=== PATIENT | female | born 1955 | race Caucasian/White ===

== ENCOUNTER 2017-06-02 12:40 | Observation (INO) | payer BC ==
[2017-06-02] MEDS ORDERED: Lactated Ringers 1,000 ML IV SCH ×2 (13:15→15:30)
[2017-06-02] MEDS ORDERED: Sodium Chloride 0.9% 10 ML Syringe FLUSH PRN (13:17)
[2017-06-02] MEDS ORDERED: cefOXitin 2 GM Vial IVPUSH ONE (14:00)
[2017-06-02] MEDS ORDERED: cefOXitin 2 GM in Sodium Chloride 0.9% 100 ML IV SCH (14:00)
[2017-06-02] MEDS ORDERED: Propofol 200 MG/20 ML SDV IV ONE (14:15)
[2017-06-02] MEDS ORDERED: Dexamethasone 4 MG/ML 5 ML MDV IVPUSH ONE (14:15)
[2017-06-02] MEDS ORDERED: fentaNYL 100 MCG/2 ML SDV IV ONE (14:15)
[2017-06-02] MEDS ORDERED: Rocuronium 100 MG/10 ML MDV IV ONE (14:15)
[2017-06-02] MEDS ORDERED: Lactated Ringers 1,000 ML IV ONE (14:15)
[2017-06-02] MEDS ORDERED: FLU Vacc QS 2017-18 (36mos UP)/PF 60 MCG/0.5 ML Syringe IM ONE (14:15)
[2017-06-02] MEDS ORDERED: Ondansetron 4 MG/2 ML SDV IVPUSH ONE (14:15)
[2017-06-02] MEDS ORDERED: HYDROmorphone 2 MG/ML SDV IV ONE (14:15)
[2017-06-02] MEDS ORDERED: ePHEDrine 50 MG/ML SDV IV ONE (14:15)
[2017-06-02] MEDS ORDERED: Ketorolac 30 MG/ML SDV IVPUSH ONE (14:15)
[2017-06-02] MEDS ORDERED: Succinylcholine 200 MG/10 ML MDV IV ONE (14:15)
[2017-06-02] MEDS ORDERED: Neostigmine Methylsulfate 10 MG/10 ML MDV IVPUSH ONE (14:15)
[2017-06-02] MEDS ORDERED: Midazolam 1 MG/ML 2 ML SDV IV ONE (14:15)
--- NOTE | 2017-06-02 14:24 | PCM.HP ---
H&P History of Present Illness - General Date of Service: 06/02/17 Admit Problem/Dx: Admission Diagnosis/Problem Admission Diagnosis/Problem Incarcerated hernia Source of Information: Patient, Old Records History Limitations: Reports: No Limitations - History of Present Illness Onset of Symptoms: Reports: Sudden (mid abdominal pain yesterday afternoon with hard mass above umbilicus. associated with nausea and vomitting) Severity: Moderate Improves with: Reports: None Worsens with: Reports: Eating, Movement Associated Symptoms: Reports: No Other Symptoms Anterior Abdomen Pain Score (Numeric/FACES): 4 - Related Data Allergies/Adverse Reactions: Allergies Allergy/AdvReac Type Severity Reaction Status Date / Time No Known Allergies Allergy Verified 06/02/17 13:13 Past Medical History [employer] History: Reports: Endocrine/Metabolic History: Reports: Obesity/BMI 30+ - Past Surgical History HEENT Surgical History: Reports: Cataract Surgery GI Surgical History: Reports: Cholecystectomy Female Surgical History: Reports: Section Social & Family History - Family History Family Medical History: Noncontributory - Tobacco Use Smoking Status *Q: Never Smoker Second Hand Smoke Exposure: Yes - Caffeine Use Caffeine Use: Reports: Coffee - Recreational Drug Use Recreational Drug Use: No H&P Review of Systems - Review of Systems: Review Of Systems: See Below General: Reports: No Symptoms HEENT: Reports: No Symptoms Pulmonary: Reports: No Symptoms Cardiovascular: Reports: No Symptoms Gastrointestinal: Reports: Abdominal Pain, Nausea, Vomiting Genitourinary: Reports: No Symptoms Exam - Exam Exam: See Below - Vital Signs Vital Signs: Last Vital Signs Temp 98.5 F 06/02/17 14:05 Pulse 92 06/02/17 14:05 Resp 14 06/02/17 14:05 BP 130/75 06/02/17 14:05 Pulse Ox 98 06/02/17 14:05 Weight: 83.461 kg - Exam General: Alert, Oriented Lungs: Clear to Auscultation, Normal Respiratory Effort Cardiovascular: Regular Rate, Regular Rhythm GI/Abdominal Exam: Soft, Tender, Mass (above umbilicus) - Patient Data Imaging Impressions Last 24 hrs: CT scan in [place] showed incarcerated Ventral Hernia with small bowel obstruction *Q Meaningful Use (ADM) - VTE *Q VTE Criteria *Q: - Stroke *Q Stroke Criteria *Q: - AMI *Q AMI Criteria *Q: Problem List Initiated/Reviewed/Updated: Yes Orders Last 24hrs: Active Orders 24 hr Category Date Time Status Patient Status [ADT] Routine ADT 06/02/17 13:14 Active Patient to Empty Bladder [RC] ASDIRECTED Care 06/02/17 13:14 Active RT Incentive Spirometry [RC] ASDIRECTED Care 06/02/17 13:14 Active Verify Patient Consent Obtain [RC] ASDIRECTED Care 06/02/17 13:14 Active Lactated Ringers [Ringers, Lactated] 1,000 ml Med 06/02/17 13:15 Active IV ASDIRECTED Sodium Chloride 0.9% [Saline Flush] Med 06/02/17 13:17 Active 10 ml FLUSH ASDIRECTED PRN Peripheral IV Insertion Adult [OM.PC] Routine Oth 06/02/17 13:14 Ordered Sequential Compression Device [OM.PC] Routine Oth 06/02/17 13:14 Ordered Resuscitation Status Routine Resus Stat 06/02/17 13:14 Ordered Medication Orders Lactated Ringer's (Ringers, Lactated) 1,000 mls @ 125 mls/hr IV ASDIRECTED PAKO Last Admin: 06/02/17 14:15 Dose: 125 mls/hr Sodium Chloride (Saline Flush) 10 ml FLUSH ASDIRECTED PRN PRN Reason: Keep Vein Open Assessment/Plan Comment:: Small Bowel Obstruction secondary to incarcerated Ventral Hernia Will go to OR for repair, possible mesh, possible bowel resection Risks and complications reviewed, consent obtained
[2017-06-02] MEDS ORDERED: Acetaminophen/HYDROcodone 325-5 MG Tab PO PRN (15:12)
[2017-06-02] MEDS ORDERED: Morphine 2 MG/ML Syringe IVPUSH PRN (15:12)
--- NOTE | 2017-06-02 15:12 | PCM.OPNOTE ---
- General Post-Op/Procedure Note Date of Surgery/Procedure: 06/02/17 Operative Procedure(s): Ventral Hernia Repair Findings: 2 cm Ventral hernia with loop of small bowel present Pre Op Diagnosis: SBO secondary to incarcerated Ventral Hernia Post-Op Diagnosis: Same Anesthesia Technique: General ET Tube Primary Surgeon: Jacobo Singh Anesthesia Provider: Sandeep Townsend EBL in mLs: 5 Complications: None Condition: Good
[2017-06-02] MEDS ORDERED: Promethazine 25 MG/ML SDV IM PRN (15:29)
[2017-06-02] MEDS ORDERED: Albuterol 0.083% 2.5 MG/3 ML Neb Soln NEB PRN (15:29)
[2017-06-02] MEDS ORDERED: fentaNYL 100 MCG/2 ML SDV IVPUSH PRN (15:29)
[2017-06-02] MEDS ORDERED: Ondansetron 4 MG/2 ML SDV IVPUSH PRN (15:29)
[2017-06-02] MEDS ORDERED: Naloxone 0.4 MG/ML SDV IVPUSH PRN (15:29)
[2017-06-02] MEDS: Lactated Ringers 1,000 ML IV SCH (16:25)
--- NOTE | 2017-06-02 17:56 | OR ---
DATE OF OPERATION: 06/02/2017 SURGEON: Jacobo Singh MD PREOPERATIVE DIAGNOSIS: Small-bowel obstruction secondary to incarcerated ventral hernia. POSTOPERATIVE DIAGNOSIS: Small-bowel obstruction secondary to incarcerated ventral hernia. PROCEDURE: Ventral hernia repair. ANESTHESIA: General. DESCRIPTION OF PROCEDURE: The patient was brought to the operating room, where general endotracheal anesthesia was administered. Her abdomen was prepped with ChloraPrep and draped sterilely. A midline incision was made above the umbilicus and extended through the subcutaneous tissue at which time, a hard hernia sac was identified. This was cleared circumferentially down to the level of fascia. Hernia sac was opened. This had did have hyperemic loop of small bowel approximately 8 cm in length. This was viable. This required slightly incising the fascia to be able to reduce it back into the peritoneal cavity. The fascial edges were cleared circumferentially and the defect was closed transversely with interrupted far-near, near-far 0 Prolene sutures. The fascial edges were felt to be strong enough that mesh was not required. Hernia defect measured 2 cm in diameter. The subcutaneous tissues were reapproximated with #3- 0 Vicryl and skin closed with hilda. A sterile dressing was applied. The patient tolerated the procedure well. Estimated blood loss was less than 5 mL. She returned to postanesthesia in stable condition. /[id number] WATSON/AMOS
[2017-06-03] MEDS: Lactated Ringers 1,000 ML IV SCH (00:37)
--- NOTE | 2017-06-03 11:22 | PCM.SURGPN ---
- General Info Date of Service: 06/03/17 POD#: 1 Functional Status: Reports: Pain Controlled, Tolerating Diet, Ambulating - Review of Systems General: Reports: No Symptoms Pulmonary: Reports: No Symptoms Gastrointestinal: Reports: No Symptoms Genitourinary: Reports: No Symptoms - Patient Data Vitals - Most Recent: Last Vital Signs Temp 98.1 F 06/03/17 07:53 Pulse 70 06/03/17 07:53 Resp 18 06/03/17 07:53 BP 112/72 06/03/17 07:53 Pulse Ox 95 06/03/17 07:53 Weight - Most Recent: 83.461 kg I&O - Last 24 Hours: Intake & Output 06/02/17 06/03/17 06/03/17 22:59 06:59 14:59 Intake Total 1150 2370 Balance 1150 2370 Med Orders - Current: Current Medications Hydrocodone Bitart/Acetaminophen (Glen 325-5 Mg) 1 tab PO Q4H PRN PRN Reason: Pain (mild 1-3) Albuterol (Proventil Neb Soln) 2.5 mg NEB ONETIME PRN PRN Reason: Wheezing Fentanyl (Sublimaze) 50 mcg IVPUSH Q5M PRN PRN Reason: Pain (severe 7-10) Lactated Ringer's (Ringers, Lactated) 1,000 mls @ 125 mls/hr IV ASDIRECTED [facility] Last Admin: 06/03/17 00:37 Dose: 125 mls/hr Lactated Ringer's (Ringers, Lactated) 1,000 mls @ 0 mls/hr IV ASDIRECTED [facility] PRN Reason: KVO Morphine Sulfate (Morphine) 2 mg IVPUSH Q1H PRN PRN Reason: Pain (severe 7-10) Naloxone HCl (Narcan) 0.2 mg IVPUSH Q1M PRN PRN Reason: Respiratory Depression Ondansetron HCl (Zofran) 4 mg IVPUSH ONETIME PRN PRN Reason: Nausea/Vomiting Promethazine HCl (Phenergan) 12.5 mg IM Q4H PRN PRN Reason: Nausea/Vomiting Sodium Chloride (Saline Flush) 10 ml FLUSH ASDIRECTED PRN PRN Reason: Keep Vein Open Discontinued Medications Cefoxitin Sodium (Mefoxin) 2 gm IVPUSH ONETIME ONE Stop: 06/02/17 14:01 Last Admin: 06/02/17 14:12 Dose: 2 gm Lactated Ringer's (Ringers, Lactated) 1,000 mls @ 125 mls/hr IV ASDIRECTED PAKO Last Admin: 06/02/17 14:15 Dose: 125 mls/hr Influenza Virus Vaccine (Fluzone Quad [id number]) 60 mcg IM .ONCE ONE Stop: 06/02/17 14:16 - Exam Wound/Incisions: Healing Well, Dressing Dry and Intact Lungs: Clear to Auscultation GI/Abdominal Exam: Soft, Non-Tender - Problem List Review Problem List Initiated/Reviewed/Updated: Yes - My Orders Last 24 Hours: Active Orders 24 hr Category Date Time Status Patient Status [ADT] Routine ADT 06/02/17 13:14 Active Patient Status [ADT] Routine ADT 06/02/17 15:13 Active Communication Order [RC] ASDIRECTED Care 06/02/17 15:29 Active Notify Provider [RC] PRN Care 06/02/17 15:29 Active Oxygen Therapy [RC] ASDIRECTED Care 06/02/17 15:29 Active Oxygen Therapy [RC] PRN Care 06/02/17 15:13 Active RT Incentive Spirometry [RC] Q2HWA Care 06/02/17 15:12 Active Up With Assistance [RC] ASDIRECTED Care 06/02/17 15:12 Active Vital Signs [RC] PER UNIT ROUTINE Care 06/02/17 15:13 Active Clear Liquid Diet [DIET] Diet 06/02/17 Dinner Active Acetaminophen/HYDROcodone [Glen 325-5 MG] Med 06/02/17 15:12 Active 1 tab PO Q4H PRN Albuterol [Proventil Neb Soln] Med 06/02/17 15:29 Active 2.5 mg NEB ONETIME PRN Lactated Ringers [Ringers, Lactated] 1,000 ml Med 06/02/17 15:15 Active IV ASDIRECTED Lactated Ringers [Ringers, Lactated] 1,000 ml Med 06/02/17 15:30 Active IV ASDIRECTED Morphine Med 06/02/17 15:12 Active 2 mg IVPUSH Q1H PRN Naloxone [Narcan] Med 06/02/17 15:29 Active 0.2 mg IVPUSH Q1M PRN Ondansetron [Zofran] Med 06/02/17 15:29 Active 4 mg IVPUSH ONETIME PRN Promethazine [Phenergan] Med 06/02/17 15:29 Active 12.5 mg IM Q4H PRN Sodium Chloride 0.9% [Saline Flush] Med 06/02/17 13:17 Active 10 ml FLUSH ASDIRECTED PRN fentaNYL [Sublimaze] Med 06/02/17 15:29 Active 50 mcg IVPUSH Q5M PRN Patient May [OM.PC] Click to Edit Oth 06/02/17 15:29 Ordered Peripheral IV Insertion Adult [OM.PC] Routine Oth 06/02/17 13:14 Ordered Sequential Compression Device [OM.PC] Routine Oth 06/02/17 13:14 Ordered Resuscitation Status Routine Resus Stat 06/02/17 13:14 Ordered Medication Orders Hydrocodone Bitart/Acetaminophen (Glen 325-5 Mg) 1 tab PO Q4H PRN PRN Reason: Pain (mild 1-3) Albuterol (Proventil Neb Soln) 2.5 mg NEB ONETIME PRN PRN Reason: Wheezing Fentanyl (Sublimaze) 50 mcg IVPUSH Q5M PRN PRN Reason: Pain (severe 7-10) Lactated Ringer's (Ringers, Lactated) 1,000 mls @ 125 mls/hr IV ASDIRECTED [facility] Last Admin: 06/03/17 00:37 Dose: 125 mls/hr Infusion: 06/03/17 00:25 Dose: 125 mls/hr Admin: 06/02/17 16:25 Dose: 125 mls/hr Lactated Ringer's (Ringers, Lactated) 1,000 mls @ 0 mls/hr IV ASDIRECTED [facility] PRN Reason: KVO Morphine Sulfate (Morphine) 2 mg IVPUSH Q1H PRN PRN Reason: Pain (severe 7-10) Naloxone HCl (Narcan) 0.2 mg IVPUSH Q1M PRN PRN Reason: Respiratory Depression Ondansetron HCl (Zofran) 4 mg IVPUSH ONETIME PRN PRN Reason: Nausea/Vomiting Promethazine HCl (Phenergan) 12.5 mg IM Q4H PRN PRN Reason: Nausea/Vomiting Sodium Chloride (Saline Flush) 10 ml FLUSH ASDIRECTED PRN PRN Reason: Keep Vein Open - Assessment Assessment (Free Text/Narrative):: Doing well;ready for discharge - Plan Plan (Free Text/Narrative):: Discharge
== END 2017-06-03 12:30 | disposition home or self-care (01) ==
LOC: EDSTATUS 13:08 → INTOOBSV 13:27 → FB.MS 13:27
PROVIDERS: ADMIT Surgery; ATTEND Surgery
DX: K43.6 Other and unspecified ventral hernia with obstruction, without gangrene (principal); E66.9 Obesity, unspecified; Z68.30 Body mass index [BMI] 30.0-30.9, adult; Z90.49 Acquired absence of other specified parts of digestive tract
CPT/HCPCS: 49561; J0694; J7120; 90686; 96374; G0008; G0378; J0131; J0330; J1100; J1170; J1885; J2250; J2405; J2704; J2710; J3010

== ENCOUNTER 2018-10-15 06:43 | Day surgery (SDC) | payer BC ==
[2018-10-15] MEDS ORDERED: Propofol 200 MG/20 ML SDV IV ONE (06:44)
[2018-10-15] MEDS ORDERED: Lactated Ringers 1,000 ML IV SCH (06:45)
[2018-10-15] MEDS ORDERED: Simethicone Drops 40 MG/0.6 ML 30 ML Bottle ONE (08:25)
--- NOTE | 2018-10-15 09:20 | PCM.HPR ---
H & P Addendum review - H & P Addendum Review Date of Original H & P: 10/09/18 Date Reviewed: 10/15/18 Time Reviewed: 08:00 Patient was Examined: No Changes
--- NOTE | 2018-10-15 09:23 | PCM.OPNOTE ---
- General Post-Op/Procedure Note Date of Surgery/Procedure: 10/15/18 Operative Procedure(s): EGD with bx. Colopnoscopy with polypectomy Findings: Distal Esophagitis Large HH Colon Polyp Pre Op Diagnosis: Anemia Post-Op Diagnosis: Same Anesthesia Technique: MAC Primary Surgeon: Jacobo Singh Anesthesia Provider: Samm Espinoza Pathology: Dist Esoph Desc Colon Complications: None Condition: Good
--- NOTE | 2018-10-15 12:20 | CR ---
INDICATION: Anemia, large hiatal hernia. UPPER GI: Examination of the distal esophagus, stomach, and duodenum revealed free gastroesophageal reflux with a fixed hiatal hernia, including almost the entire stomach - the only portion of the stomach below the diaphragm is a portion of the gastric antrum. In the area of the distal fundus/body, it is difficult to exclude a submucosal lesion, such as a leiomyoma, measuring perhaps 5 [address] in diameter[address] A [address] examination would be confirmatory with contrast, after the more dense contrast of the upper GI obtained today has passed. No definite ulceration was seen in the stomach. Flow was moderate into the distal gastric antrum and duodenum. The duodenal bulb and sweep filled to normal contour along the caudal aspect. The cranial aspect had some irregularity, which may represent scarring, possibly from previous peptic ulcer disease. This makes it difficult to entirely exclude minimal active ulceration in that area. However, no definite persistent ulcer crater was identified focally in that area. The small bowel loops that filled appeared normal. Evidence of cholecystectomy is noted. Free gastroesophageal reflux was noted during the examination with some minimal tertiary waves in the distal esophagus suggested. IMPRESSION: Massive fixed hiatal hernia. This does not appear to be paraesophageal at this time. No definite obstruction was seen, although free gastroesophageal reflux is noted, and the possibility of a submucosal lesion near the fundus - proximal body of the stomach posteriorly cannot be excluded. CT examination may be helpful in that regard with oral contrast after a satisfactory interval to allow the contrast to pass from the stomach. 3 minutes, 24 seconds fluoroscopy time. Report was called to Dr. Singh at 1150 hours on 10/15/18. Report was faxed to Dr. Singh at 1225 hours on 10/15/18. [facility]
--- NOTE | 2018-10-15 15:42 | OR ---
DATE OF OPERATION: 10/15/2018 SURGEON: Jacobo Singh MD PREOPERATIVE DIAGNOSIS: Anemia. POSTOPERATIVE DIAGNOSES: 1. Distal esophagitis. 2. Large hiatal hernia. 3. Descending colon polyp. PROCEDURES: 1. Esophagogastroscopy with biopsies. 2. Colonoscopy with polypectomy. ANESTHESIA: IV sedation. PROCEDURE IN DETAIL: The patient was brought to the procedure room, where she was placed on her left side and IV sedation administered. Oral bite block was placed and the upper endoscope advanced into the esophagus under direct vision without difficulty. Vocal cords were viewed and were normal. 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 No obvious evidence of malignancy was seen. This extended for approximately 2 cm. Squamocolumnar junction was located at 30 cm from the incisors. Upon entering the stomach, she has a large hiatal hernia. Diaphragmatic opening is at 40 cm. After I get into the distal body of the stomach below the diaphragm, the stomach sharply turns consistent with a paraesophageal hernia where over half the stomach is into the chest. I was unable to find the pylorus and was unable to pass into the duodenum. The visible body and antrum appeared normal. Retroflexion does not reveal any other abnormalities. Multiple biopsies from the distal esophagus were taken as noted above. Air was removed from the stomach and the scope withdrawn. The patient tolerated this portion of the procedure well. Next, colonoscopy was performed after digital rectal exam was done, which was normal. Colonoscope was inserted and advanced to the level of the cecum with some difficulty because of a colon prep that was only fair. There was much thick liquid stool remaining. Much time was spent irrigating and suctioning. I was able to reach the cecum, which was confirmed by identifying the appendiceal lumen and ileocecal valve. Upon withdrawing the scope, the ascending and transverse colon were normal. In the descending colon at 65 cm, was an 8 mm semipedunculated polyp removed with the cautery snare and retrieved in the polyp trap. The sigmoid colon and rectum were normal. Retroflexion was normal. Air was removed and the scope withdrawn. The patient tolerated the procedure well and returned to recovery in stable condition. No obvious source for the patient's anemia was identified. I spoke with Susan Moyer, and she will start her on omeprazole and Carafate, and follow up with her tomorrow. I also spoke with Dr. Stephenson from Radiology, who will perform an upper GI on her today to evaluate the stomach and also evaluate the duodenum that I was unable to visualize. /[id number] WATSON/AMOS
== END 2018-10-15 11:09 | disposition home or self-care (01) ==
LOC: FB.SDS 06:43
PROVIDERS: ATTEND Surgery
DX: D62 Acute posthemorrhagic anemia (principal); D12.4 Benign neoplasm of descending colon; K22.10 Ulcer of esophagus without bleeding; K44.9 Diaphragmatic hernia without obstruction or gangrene; Z79.899 Other long term (current) drug therapy
CPT/HCPCS: 74240; 88305; 88312; 88313; 88342; A9270-GY; J2704; J7120